=== PATIENT | female | born 1995 | race Caucasian/White ===

== ENCOUNTER 2016-11-02 12:30 | Emergency (ER) | payer SELFPAY ==
--- NOTE | 2016-11-02 13:40 | RAD ---
HISTORY: Knee pain, trauma, left knee pain COMPARISONS: None VIEWS: 4, Frontal, lateral, axial, and oblique views of the left knee FINDINGS: BONE DENSITY: Normal. BONES: There is no displaced fracture. JOINTS: There is no arthropathy. There is no suprapatellar joint effusion or lipohemarthrosis. ALIGNMENT: There is no dislocation. SOFT TISSUES: Unremarkable. OTHER FINDINGS: None. IMPRESSION: NO ACUTE OSSEOUS INJURY. IF SYMPTOMS PERSIST, RECOMMEND REPEAT IMAGING.
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
== END 2016-11-02 14:33 | disposition home or self-care (01) ==
LOC: ED 12:30
DX: M25.562 Pain in left knee (principal); Z72.0 Tobacco use; Z04.1 Encounter for examination and observation following transport accident
CPT/HCPCS: 99282